=== PATIENT | male | born 1950 | race Caucasian/White ===

== ENCOUNTER 2016-10-11 12:36 | Emergency (ER) | payer MEDICARE, BC ==
[2016-10-11] MEDS ORDERED: SODIUM CHLORIDE 0.9% 1,000 ML ONE (13:56)
== END 2016-10-11 15:51 | disposition home or self-care (01) ==
LOC: ER 12:36
CPT/HCPCS: 36415; 71010; 80053; 81003; 83605; 85025; 85610; 85730; 87040; 87088; 87804; 96360; 96361